=== PATIENT | female | born 1975 | race Caucasian/White ===

== ENCOUNTER 2021-05-25 17:05 | Emergency (ER) | payer OTHER, SELFPAY ==
[2021-05-25 17:33] VITALS: BP 119/73; PULSE 86; RESP 14; TEMP 36.6; O2SAT 99; BMI 31.8
[2021-05-25 19:17] LABS: Basophils # 0.1 10^3/uL (0.0-0.1); Basophils % 0.6 %; Eosinophils # 0.1 10^3/uL (0.0-0.8); Eosinophils % 0.7 %; Hematocrit 44.4 % (37.0-47.0); Hemoglobin 14.6 g/dL (11.5-15.3); Lymphocytes # 3.5 10^3/uL (0.8-4.8); Lymphocytes % 28.2 %; Mean Corpuscular HGB Conc 32.9 g/dL (30.0-36.0); Mean Corpuscular Hemoglobin 31.5 pg (28.0-34.0); Mean Corpuscular Volume 95.9 fl (81-99); Mean Platelet Volume 9.2 fL (7.4-10.4); Monocytes # 0.7 10^3/uL (0.2-0.9); Monocytes % 5.7 %; Neutrophils # 7.91 10^3/uL (1.8-7.7); Neutrophils % 64.4 %; Nucleated Red Blood Cells % 0 %; Platelet Count 347 10^3/cmm (130-400); Red Blood Count 4.63 10^6/uL (4.1-5.3); Red Cell Distribution Width 13.6 % (12.1-15.1); White Blood Count 12.3 10^3/uL (4.0-10.0)
[2021-05-25 19:44] LABS: HCG Qualitative Urine. Negative (Negative)
[2021-05-25 19:49] LABS: Alanine Aminotransferase 13 U/L (0-33); Albumin Level 4.7 g/dL (3.5-5.2); Alkaline Phosphatase 103 IU/L (35-105); Anion Gap 14.8 (5-19); Aspartate Amino Transferase 14 U/L (0-32); Blood Urea Nitrogen 15 mg/dL (6-20); Calcium 9.7 mg/dL (8.5-10.5); Carbon Dioxide 25 mmol/L (22-29); Chloride 102 mmol/L (98-107); Globulin 3.2 g/dL (1.3-4.6); Glomerular Filtration Rate 132.2 mL/min (90-130); Glucose 78 mg/dL (65-115); Osmolality Calculated 286 mOsm/kg (285-295); Potassium 3.8 mmol/L (3.5-5.1); Sodium 138 mmol/L (136-145); Total Bilirubin 0.4 mg/dL (0.15-1.2); Total Protein 7.9 g/dL (6.6-8.7)
[2021-05-25 19:54] LABS: INR 0.88 (0.8-1.2)
[2021-05-25 19:58] LABS: Add Urine Microscopic? NO; Charge for UA Resulting for Rev
[2021-05-25 20:06] LABS: Bilirubin Urine Neg (Negative); Blood Urine Neg (Negative); Glucose Urine UA Norm (Normal); Ketones Urine Negative (Negative); Leukocyte Esterase Urine Negative (Negative); Nitrate Urine Negative (Negative); Protein Urine Neg (Negative); Urine Appearance Clear (CLEAR); Urine Color Yellow (Yellow); Urobilinogen Urine Norm (Negative); pH Urine 7 (5-7)
--- NOTE | 2021-05-25 20:09 | W.ED.GIBLEED ---
HPI - GI Bleed General: Chief complaint: GI Bleed Stated complaint: Bloody Stool Time Seen by Provider: 05/25/21 19:53 History of Present Illness: Patient states she has some bright red blood in her stool this morning. She is not had any bleeding since then. Patient has no history of this. Denies painful bowel movements. 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 Just moved here recently. Associated symptoms: Denies abdominal pain, chills, fever(s), headache(s), nausea, rash or vomiting Review of Systems Const: Denies: fever(s), chills or body aches Eyes: Denies: eye discomfort ENMT: Denies: throat pain Card: Denies: chest pain Resp: Denies: dyspnea GI: Reports: hematochezia; Denies: abdominal pain, nausea, vomiting, coffee ground emesis, bloating, GI cramping, pain on defecation, rectal pain, rectal swelling, rectal itching, melena, mucus in stool or white/light colored stool Skin/Breast: Denies: rash Neuro: Denies: headache(s) Psych: Denies: depression or suicidal ideation Physical Exam Const: COMMON NORMALS: no acute distress, patient oriented x3 and alert HENMT: COMMON NORMALS: normocephalic and external ears normal HEAD & SCALP: normocephalic EXTERNAL EAR: Yes external ears normal Eye: COMMON NORMALS: EOMs intact bilaterally Neck/C-Spine: COMMON NORMALS: no JVD Resp: COMMON NORMALS: normal respiratory effort and No use of accessory muscles Cardio: COMMON NORMALS: no JVD GI: INSPECTION: Yes normal to inspection OTHER: Patient refused rectal exam Extremity: COMMON NORMALS: normal to inspection and full ROM Neuro: COMMON NORMALS: patient oriented x3 SENSORIUM/ORIENTATION: Yes alert Psych: COMMON NORMALS: mental status grossly normal Skin: COMMON NORMALS: no rashes or lesions noted GENERAL SKIN EXAM: no rashes or lesions noted Course Vital Signs: Vital signs: Vital Signs Temperature 97.8 F 05/25/21 17:33 Pulse Rate 86 05/25/21 17:33 Respiratory Rate 14 05/25/21 17:33 Blood Pressure 119/73 05/25/21 17:33 Pulse Oximetry 99 05/25/21 17:33 MDM - GI Bleed Medical Decision Making Patient with bright red blood in her stool this morning. No other symptoms since. Denies any other health problems besides that possible alcoholism. Patient denies any history of hemorrhoids are bleeding. Laboratory studies were negative for any concerns of high platelet are low H&H. Chemistries look good. Advised patient would need to do rectal exam to check for cause of bleeding patient refused says she wants to be referred to her primary care provider in her local area. Patient referred to Dr. Dominguez at [place] patient lives in [place]. Lab Data : 05/25/21 19:02 05/25/21 19:02 Laboratory Results WBC 12.3 10^3/uL (4.0-10.0) H 05/25/21 19: RBC 4.63 10^6/uL (4.1-5.3) 05/25/21 19:02 Hgb 14.6 g/dL (11.5-15.3) 05/25/21 19: Hct 44.4 % (37.0-47.0) 05/25/21 19: MCV 95.9 fl (81-99) 05/25/21 19: MCH 31.5 pg (28.0-34.0) 05/25/21 19: MCHC 32.9 g/dL (30.0-36.0) 05/25/21 19:02 RDW 13.6 % (12.1-15.1) 05/25/21 19:02 Plt Count 347 10^3/cmm (130-400) 05/25/21 19:02 MPV 9.2 fL (7.4-10.4) 05/25/21 19:02 Neut % (Auto) 64.4 % 05/25/21 19:02 Lymph % (Auto) 28.2 % 05/25/21 19:02 [place] % (Auto) 5.7 % 05/25/21 19:02 Eos % (Auto) 0.7 % 05/25/21 19:02 Baso % (Auto) 0.6 % 05/25/21 19:02 Neut # (Auto) 7.91 10^3/uL (1.8-7.7) H 05/25/21 19:02 Lymph # (Auto) 3.5 10^3/uL (0.8-4.8) 05/25/21 19:02 [place] # (Auto) 0.7 10^3/uL (0.2-0.9) 05/25/21 19:02 Eos # (Auto) 0.1 10^3/uL (0.0-0.8) 05/25/21 19:02 Baso # (Auto) 0.1 10^3/uL (0.0-0.1) 05/25/21 19:02 Nucleated RBC % (auto) 0 % 05/25/21 19:02 Nucleated RBCs # 0.0 /100WBC 05/25/21 19:02 PT 12.20 SECONDS (12.1-14.9) 05/25/21 19:12 INR 0.88 (0.8-1.2) 05/25/21 19:12 Sodium 138 mmol/L (136-145) 05/25/21 19:02 Potassium 3.8 mmol/L (3.5-5.1) 05/25/21 19:02 Chloride 102 mmol/L (98-107) 05/25/21 19:02 Carbon Dioxide 25 mmol/L (22-29) 05/25/21 19:02 Anion Gap 14.8 (5-19) 05/25/21 19:02 BUN 15 mg/dL (6-20) 05/25/21 19:02 Creatinine 0.5 mg/dL (0.5-0.9) 05/25/21 19:02 GFR Calculation 132.2 mL/min (90-130) H 05/25/21 19:02 Glucose 78 mg/dL (65-115) 05/25/21 19:02 Calculated Osmolality 286 mOsm/kg (285-295) 05/25/21 19:02 Calcium 9.7 mg/dL (8.5-10.5) 05/25/21 19:02 Total Bilirubin 0.4 mg/dL (0.15-1.2) 05/25/21 19:02 AST 14 U/L (0-32) 05/25/21 19:02 ALT 13 U/L (0-33) 05/25/21 19:02 Alkaline Phosphatase 103 IU/L (35-105) 05/25/21 19:02 Total Protein 7.9 g/dL (6.6-8.7) 05/25/21 19:02 Albumin 4.7 g/dL (3.5-5.2) 05/25/21 19:02 Globulin 3.2 g/dL (1.3-4.6) 05/25/21 19:02 HCG, Qual Negative (Negative) 05/25/21 19:24 Urine Color Yellow (Yellow) 05/25/21 19:24 Urine Appearance Clear (CLEAR) 05/25/21 19:24 Urine pH 7 (5-7) 05/25/21 19:24 Ur Specific [place] 1.010 (1.005-1.030) 05/25/21 19:24 Urine Protein Neg (Negative) 05/25/21 19:24 Urine Glucose (UA) Norm (Normal) 05/25/21 19:24 Urine Ketones Negative (Negative) 05/25/21 19:24 Urine Blood Neg (Negative) 05/25/21 19:24 Urine Nitrate Negative (Negative) 05/25/21 19:24 Urine Bilirubin Neg (Negative) 05/25/21 19:24 Urine Urobilinogen Norm mg/dL (Negative) 05/25/21 19:24 Ur Leukocyte Esterase Negative (Negative) 05/25/21 19:24 Discharge Plan Discharge Patient Disposition: Home Clinical Impression: Hematochezia Condition: Stable Discharge Orders: Discharge ED (Routine); Ordered 05/25/21 Ordered By: Angel Luis Belcher Discharge Diet: Usual diet Discharge Activity: Resume usual activity Patient Instructions: Hemorrhoids (ED) Activity Restrictions/Additional Instructions: Can use Preparation H. Referral was made to Dr. Dominguez at [facility] for a physical evaluation. If bleeding worsens or have other symptoms develop please return to the ER or see Dr. Dominguez as soon as possible. Also recommend abstaining from alcohol. Coding Level of Care Code ED Logistics Project Manager for Kashif Vásquez
--- NOTE | 2021-05-27 11:20 | DCPLANNER ---
Addendum entered by Tangela Samson 06/29/21 19:04: Patient had a follow up appointment scheduled with [facility] - appointment was rescheduled. Original Note: funeral sales manager had message to speak with patient about getting established with a primary care physician. funeral sales manager called patient, she stated that she would like help in getting established with Dr. Dominguez in [facility]. funeral sales manager called the [facility] clinic, spoke with Xiomara, gave clinic patients appointment information. A follow up appointment was scheduled for Wednesday, June 30, 2021 at 1:00. funeral sales manager was told that patient would be able to stop by the clinic and be seen as a walk in for an ER visit anytime. Elier acuna called patient and gave patient the appointment information. funeral sales manager also told patient that she could stop by the clinic as a walk in and that can call the clinic and see if there has been any cancellations.
== END 2021-05-25 20:24 | disposition home or self-care (01) ==
PROVIDERS: Emergency Medicine; Emergency Provider Nurse Practitioner Family
DX: K92.1 Melena (principal)
CPT/HCPCS: 80053; 81003; 81025; 85025; 85610; 99282